=== PATIENT | female | born 1975 | race African-American/Black ===

== ENCOUNTER → 2024-11-16 | Day surgery (SDC) | payer MEDICARE ==
[~2024-11-16] MED LIST: CANDESARTAN-HC1 EACH PO; FENTANYL CITRATE/PF 100MCG/2 ML INJ ONE; GLUCAGON FOR INJ 1 MG VIAL ONE; PROPOFOL IV EMULSION 10 MG/ML 20 ML VIAL ONE; ULTRAM 50MG50 MG PO
[2024-11-16 12:20] VITALS: BP 135/67; PULSE 87; RESP 18; O2SAT 100
[2024-11-16] MEDS: LACTATED RINGER'S 1,000 ML ONE (13:06)
== END | disposition home or self-care (01) ==
LOC: OR 07:45
PROVIDERS: ATTEND Internal Medicine Gastroenterology
DX: Z12.11 Encounter for screening for malignant neoplasm of colon (principal); K62.89 Other specified diseases of anus and rectum; K64.8 Other hemorrhoids; K21.9 Gastro-esophageal reflux disease without esophagitis; I10 Essential (primary) hypertension; E66.01 Morbid (severe) obesity due to excess calories; F31.9 Bipolar disorder, unspecified; F20.9 Schizophrenia, unspecified; Z79.899 Other long term (current) drug therapy; Z68.42 Body mass index [BMI] 45.0-49.9, adult
CPT/HCPCS: 36415; 45380; 84702; 88305; 93005; J1610; J2704; J3010; J7121